=== PATIENT | female | born 1955 | race Caucasian/White ===

== ENCOUNTER 2019-04-14 08:02 | Day surgery (SDC) | payer BC ==
[~2019-04-14] VITALS: Ht 149.9 cm; Wt 76.6 kg
[2019-04-14] MEDS ORDERED: WARFARIN SODIUM (10:15)
[2019-04-14] MEDS ORDERED: FERROUS SULFATE (10:15)
[2019-04-14] MEDS ORDERED: BREO (10:15)
--- NOTE | 2019-04-14 10:19 | PREAC ---
Date/Time of Note Date/Time of Note DATE: 04/14/19 TIME: 10:16 Anesthesia Eval and Record Evaluation Time Pre-Procedure Interview DATE: 04/14/19 TIME: 10:16 Age 63 Sex female NPO: 8 hrs Preoperative diagnosis POSITIVE OCCULT BLOOD Planned procedure COLONOSCOPY WITH BIOPSIES Past Medical History Past Medical History: Includes Cardio: Dyslipidemia Pulm: Asthma Heme: Anemia, Other (DVT, PE) Surgery & Anesthesia Issues No known issue Meds Anticoagulation: No Beta Esvin within 24 hr: No Reason Beta Esvin not given: Pt. not on B-Esvin Reported Medications [Breo] No Conflict Check 04/14/19 [Ferrous Sulfate] No Conflict Check 04/14/19 [Warfarin Sodium] No Conflict Check 04/14/19 Meds reviewed: Yes Allergies Coded Allergies: No Known Allergy (Unverified , 04/14/19) Allergies Reviewed: Yes Labs/Studies Labs Reviewed: Reviewed by anesthesiologist test: N/A Pre-procedure Exam Airway: Adequate mouth opening, Adequate thyromental dist Mallampati: Mallampati II Teeth: Abnormal (PARTIAL UPPER AND LOWER DENTURE) Lung: Normal Heart: Normal ASA Physical Status ASA physical status: 2 Emergency: None Planned Anesthetic General/MAC: MAC Planned Pain Management Parenteral pain med Pre-operative Attestations Prior to commencing anesthesia and surgery, the patient was re-evaluated, there was verification of: *The patient's identity *The results of appropriate recent lab work and preoperative vital signs *The above evaluation not changing prior to induction *Anesthetic plan, risk benefits, alternative and complications discussed with patient/family; questions answered; patient/family understands, accepts and wishes to proceed. Neo Moore M.D. April 14, 2019 10:19
[2019-04-14 10:20] VITALS: Ht 149.9 cm; Wt 76.6 kg
[2019-04-14 10:21] VITALS: BP 182/79; PULSE 81; RESP 18
[2019-04-14] MEDS ORDERED: PROPOFOL 40 ML ONE (10:22)
[2019-04-14] MEDS ORDERED: LIDOCAINE 100 MG SYRINGE ONE (10:22)
--- NOTE | 2019-04-14 10:52 | PAC ---
Date/Time of Note Date/Time of Note DATE: 04/14/19 TIME: 10:52 Post-Anesthesia Notes Post-Anesthesia Note Last documented vital signs HR 78 RR 14 BP 114/65 T 98.5 Activity: WNL Respiratory function: WNL Cardiovascular function: WNL Mental status: Baseline Pain reasonably controlled: Yes Hydration appropriate: Yes Nausea/Vomiting absent: Yes Neo Moore M.D. April 14, 2019 10:52
[2019-04-14 11:07] VITALS: BP 140/67; PULSE 74; RESP 15
[2019-04-14 11:19] VITALS: BP 138/58; PULSE 64; RESP 18
== END 2019-04-14 11:37 | disposition home or self-care (01) ==
LOC: GIL 08:02
PROVIDERS: ATTEND Internal Medicine Gastroenterology
DX: K92.1 Melena (principal); K64.8 Other hemorrhoids
CPT/HCPCS: 45378; J2001; Z7610